=== PATIENT | female | born 1970 | race Asian ===

== ENCOUNTER 2017-01-23 06:51 | Inpatient (IN) | payer OTHER ==
[~2017-01-23] VITALS: Ht 157.5 cm; Wt 68.0 kg
[2017-01-23] VITALS (18 sets, daily range): BP systolic 98–156; BP diastolic 66–98
[~2017-01-23 06:51] MED LIST: NKM
[2017-01-23] MEDS ORDERED: Thrombin 5000 units TOPIC ONE (07:01)
[2017-01-23] MEDS ORDERED: Bupivacaine w/Epi 0.5% 30ml Vial INJ ONE (07:02)
[2017-01-23] MEDS ORDERED: Gelfoam Absorbable 1gm powder pkt TOPIC ONE (07:02)
[2017-01-23] MEDS ORDERED: Thrombin 5000 units spray kit TOPIC ONE (07:02)
[2017-01-23] MEDS ORDERED: Bacitracin 50000 Units Vial ONE (07:02)
[2017-01-23] MEDS ORDERED: Vancomycin 1gm inj IVPB ONE (07:03)
[2017-01-23] MEDS ORDERED: Propofol 10mg/ml 20ml IV ONE (08:00)
[2017-01-23] MEDS ORDERED: Lidocaine 1% MPF 10mg/ml 5ml ONE (08:00)
[2017-01-23] MEDS ORDERED: Zemuron 50mg/5ml Inj IV ONE (08:00)
[2017-01-23] MEDS ORDERED: Glycopyrrolate 0.2mg/ml 1ml Vial ONE (08:00)
[2017-01-23] MEDS ORDERED: Lidocaine 1% Plain 30 ml INJ ONE (08:00)
[2017-01-23] MEDS ORDERED: Neostigmine 1mg/ml 10ml Inj ONE (08:00)
[2017-01-23] MEDS ORDERED: Midazolam 2mg/2ml Inj ONE (08:00)
[2017-01-23] MEDS ORDERED: fentaNYL 250mcg/5ml ONE (08:00)
[2017-01-23] MEDS ORDERED: Dexamethasone 4mg/ml vial ONE (08:00)
[2017-01-23] MEDS ORDERED: LR 1000ml 1,000 ML IVLG SCH (08:16)
--- NOTE | 2017-01-23 08:16 | Anethesia Preoperative Eval ---
Anesthesia Pre-op PMH/ROS General Date of Evaluation: Jan 23, 2017 Time of Evaluation: 08:31 Anesthesiologist: Pedro ASA Score: ASA 2 Mallampati Score Class I : Soft palate, uvula, fauces, pillars visible Class II: Soft palate, uvula, fauces visible Class III: Soft palate, base of uvula visible Class IV: Only hard plate visible Mallampati Classification: Class II Surgeon: Skyler Diagnosis: Back Pain Surgical Procedure: PSF L4-5 Anesthesia History: none Family History: no anesthesia problems Allergies: Coded Allergies: No Known Allergies (Unverified , 01/21/17) Medications: see eMAR Past Medical History Cardiovascular: Reports: HTN Neurologic/Psychiatric: Reports: depression/anxiety Musculoskeletal/Integumentary: Reports: other - Back Pain PSxH Narrative: Lumbar Spine SX 2015 Anesthesia Pre-op Phys. Exam Physician Exam Last Vital Signs Date Time Temp Pulse Resp B/P Pulse Ox O2 Delivery O2 Flow Rate FiO2 01/23/17 07:41 97.9 74 16 156/98 98 Room Air Constitutional: NAD Neurologic: CN 2-12 intact Cardiovascular: RRR Respiratory: CTA Gastrointestinal: S/NT/ND Airway Exam Mallampati Score: Class II MO: full ROM: full Teeth: intact Anesthesia Pre-op A/P Labs Urine Test Test 01/23/17 07:10 Urine HCG, Qualitative Negative Risk Assessment & Plan Assessment: ASA 2 Plan: GA, BIS, Glidescope Status Change Before Surgery: No Pre-Antibiotics Dru Grams Ancef IV Given Within 1 Hr of Incision: Yes Time Given: 08:44 Everardo Vasquez MD Jan 23, 2017 08:16
--- NOTE | 2017-01-23 08:21 | Immediate Post-Op Evaluation ---
Immediate Post-Op Evalulation Immediate Post-Op Evalulation Procedure: PSF L4-5 Date of Evaluation: Jan 23, 2017 Time of Evaluation: 12:10 IV Fluids: 1500 LR Blood Products: 0 Estimated Blood Loss: 40 Urinary Output: 200 Blood Pressure Systolic: 118 Blood Pressure Diastolic: 73 Pulse Rate: 87 Respiratory Rate: 16 O2 Sat by Pulse Oximetry: 100 Temperature (Fahrenheit): 97.1 Pain Score (1-10): 2 Complications Stable Patient Status: awake, reacts, patent, extubated, none Hydration Status: adequate Dru Grams Ancef IV Given Within 1 Hr of Incision: Yes Time Given: 08:44 Everardo Vasquez MD Jan 23, 2017 08:21
[2017-01-23] MEDS ORDERED: fentaNYL 100 mcg/2 mL IV PRN (08:30)
[2017-01-23] MEDS ORDERED: Metoclopramide 10mg/2ml Inj IVP PRN ×2 (08:30→11:30)
[2017-01-23] MEDS ORDERED: Norco 7.5mg/325mg tab ORAL PRN ×3 (08:30→14:00)
[2017-01-23] MEDS ORDERED: Norco 5mg/325mg tab ORAL PRN ×2 (08:30→14:00)
[2017-01-23] MEDS ORDERED: Labetalol 5mg/ml 20ml vial IV PRN (08:30)
[2017-01-23] MEDS ORDERED: LORazepam Inj 2mg/ml 1ml IV PRN (08:30)
[2017-01-23] MEDS ORDERED: Meperidine 25mg/ml Inj IV PRN (08:30)
[2017-01-23] MEDS ORDERED: Atropine Inj 1mg/10ml Syr IV PRN (08:30)
[2017-01-23] MEDS ORDERED: Oxycodone/Acetaminophen 5-325 ORAL PRN (08:30)
[2017-01-23] MEDS ORDERED: Ketorolac 30mg Inj IV PRN (08:30)
[2017-01-23] MEDS ORDERED: Midazolam 2mg/2ml Inj IVP PRN (08:30)
[2017-01-23] MEDS ORDERED: DiphenhydrAMINE 50mg/ml Inj IVP PRN (08:30)
[2017-01-23] MEDS ORDERED: Acetaminophen (Non formulary) 100 ML IV ONE (08:30)
[2017-01-23] MEDS ORDERED: Hydromorphone 0.5mg/0.5ml inj IVP PRN (08:30)
[2017-01-23] MEDS ORDERED: Ketorolac 60mg Inj IV PRN (08:30)
--- NOTE | 2017-01-23 09:11 | Pre-Procedure Note/Attestation ---
Pre-Procedure Note/Attestation Complete Prior to Procedure Procedure Narrative: PSF L45, L decompression Indications for Procedure Pre-Operative Diagnosis: Sp L45 Fusion with pseudoarthrosis, L Stenosis Attestation I attest that I discussed the nature of the procedure; its benefits; risks and complications; and alternatives (and the risks and benefits of such alternatives ), prior to the procedure, with the patient (or the patient's legal leather goods sales representative). I attest that, if there was a reasonable possibility of needing a blood transfusion, the patient (or the patient's legal leather goods sales representative) was given the [facility] standardized written summary, pursuant to the Chuckie Robles Blood Safety Act ([place] Health and Safety Code # 1645, as amended). I attest that I re-evaluated the patient just prior to the surgery and that there has been no change in the patient's H&P, except as documented below: IVONE ELAINE Jan 23, 2017 09:11
--- NOTE | 2017-01-23 09:12 | Brief Operative Note ---
Immediate Post Operative Note Operative Note Pre-op Diagnosis: Sp L45 Fusion with pseudoarthrosis, L Stenosis Procedure: L45 psf, L decompression Post-op Diagnosis: same as pre-op Findings: consistent w/pre-op dx studies Surgeon: chariyt Supervisor [employer]ation: beatriz [place] [employer] Anesthesiologist: arian mix Anesthesia: general Specimen: none Complications: none Condition: stable Estimated Blood Loss: minimal Drains: none Implant(s) used?: Yes - alphateck screws IVONE ELAINE Jan 23, 2017 09:12
[2017-01-23] MEDS ORDERED: traMADol 50mg tab ORAL PRN (11:30)
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
[2017-01-23] MEDS ORDERED: Acetaminophen 650 MG SUPP RECTAL PRN (14:00)
[2017-01-23] MEDS ORDERED: Milk of Magnesia 30ml Ud ORAL PRN (14:00)
[2017-01-23] MEDS ORDERED: HYDROmorphone 1mg/ml Carpuject SUBQ PRN (14:00)
[2017-01-23] MEDS ORDERED: Naloxone 0.4mg/ml Inj IVP PRN (14:00)
[2017-01-23] MEDS ORDERED: D5 1/2NS 1,000 ML IV SCH (14:00)
[2017-01-23] MEDS: HYDROmorphone 1mg/ml Carpuject IVP PRN ×2 (15:52→20:48)
[2017-01-23] MEDS: ceFAZolin sod 1 GM in D5W 55 ML IV SCH ×2 (16:24→23:25)
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
[2017-01-23] MEDS: Pericolace tab ORAL SCH (18:00)
[2017-01-23] MEDS: Docusate 100mg tablet ORAL SCH (18:00)
[2017-01-23] MEDS: D5 1/2NS 1,000 ML IV SCH (23:25)
[2017-01-23] MEDS: HYDROmorphone 1mg/ml Carpuject SUBQ PRN (23:27)
[2017-01-24] VITALS: BP 127/67
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
[2017-01-24] MEDS: HYDROmorphone 1mg/ml Carpuject SUBQ PRN ×2 (03:47→09:32)
[2017-01-24 04:00] VITALS: BP 116/62
[2017-01-24] MEDS: D5 1/2NS 1,000 ML IV SCH (06:55)
[2017-01-24 07:30] LABS: BASOPHILS % (AUTO) 0.2 % (0.0-2.0); LYMPHOCYTES % (AUTO) 12.4 % (20.0-45.0); MEAN CORPUSCULAR HEMOGLOBIN 28.2 PG (27.0-31.0); MEAN CORPUSCULAR VOLUME 88 FL (80-99); MEAN PLATELET VOLUME 9.2 FL (6.5-10.1); MONOCYTES % (AUTO) 6.3 % (1.0-10.0); NEUTROPHILS % (AUTO) 81.1 % (45.0-75.0); PLATELET COUNT 217 K/UL (150-450); RED BLOOD COUNT 3.93 M/UL (4.20-5.40); RED CELL DISTRIBUTION WIDTH 13.6 % (11.6-14.8); WHITE BLOOD COUNT 12.8 K/UL (4.8-10.8)
[2017-01-24 08:00] VITALS: BP 111/54
[2017-01-24] MEDS: ceFAZolin sod 1 GM in D5W 55 ML IV SCH (08:17)
[2017-01-24] MEDS: Pericolace tab ORAL SCH ×2 (08:20→17:44)
[2017-01-24] MEDS: Docusate 100mg tablet ORAL SCH ×2 (08:20→17:44)
--- NOTE | 2017-01-24 08:23 | Orthopedic Spine Progress Note ---
Ortho Spine - Progress Note Subjective Symptoms: c/o post-op back pain, improved - as compared to pre-op Objective Vital Signs: Last 24 Hour Vital Signs Date Time Temp Pulse Resp B/P Pulse Ox O2 Delivery O2 Flow Rate FiO2 01/24/17 04:00 98.1 103 18 116/62 94 Room Air 01/24/17 00:00 97.9 102 18 127/67 94 Room Air 01/23/17 20:00 98.1 101 16 134/76 94 Room Air 01/23/17 19:13 97.7 01/23/17 16:23 97.7 01/23/17 16:00 97.7 101 19 110/76 96 Nasal Cannula 2.0 01/23/17 15:45 97.2 101 18 106/74 96 Nasal Cannula 2.0 01/23/17 15:15 97.5 101 18 119/74 97 Nasal Cannula 2.0 01/23/17 14:45 97.5 88 17 104/66 99 Nasal Cannula 2.0 01/23/17 14:30 97.2 78 16 109/76 97 Nasal Cannula 2.0 01/23/17 14:15 97.0 96 17 117/77 96 Nasal Cannula 2.0 01/23/17 14:00 97.0 100 18 108/67 97 Nasal Cannula 2.0 01/23/17 13:45 96.8 97 17 124/77 97 Nasal Cannula 2.0 01/23/17 13:16 97.5 01/23/17 12:50 88 17 98/67 100 Nasal Cannula 3.0 01/23/17 12:45 97.2 71 15 119/70 100 Nasal Cannula 3.0 01/23/17 12:35 77 17 122/72 100 Nasal Cannula 3.0 01/23/17 12:30 72 18 118/67 100 Nasal Cannula 3.0 01/23/17 12:20 85 15 135/81 100 Simple Mask 6.0 01/23/17 12:10 85 18 135/81 100 Simple Mask 6.0 01/23/17 12:05 86 14 128/86 100 Simple Mask 6.0 01/23/17 12:01 87 16 100 01/23/17 11:59 97.1 88 17 118/73 100 Simple Mask 6.0 I&O: Intake and Output 01/23/17 01/24/17 19:00 07:00 Intake Total 575 ml 1610 ml Output Total 600 ml 1500 ml Balance -25 ml 110 ml Intake Oral 50 ml 360 ml IV Total 525 ml 1250 ml Output Urine Total 600 ml 1500 ml # Voids 1 Wound: clean, intact Drains: none Neuro Status: normal Assessment Procedure Performed: L45 psf, L decompression Plan Plan: PT, pain management, d/c antibiotics, discharge plan IVONE ELAINE Jan 24, 2017 08:23
[2017-01-24] MEDS ORDERED: HYDROmorphone 1mg/ml Carpuject SUBQ PRN (11:00)
[2017-01-24] MEDS ORDERED: D5 1/2NS 1,000 ML IV SCH (11:00)
[2017-01-24 12:00] VITALS: BP 113/73
[2017-01-24] MEDS: oxyCODONE 5mg IR tab ORAL PRN ×2 (13:13→22:52)
[2017-01-24 16:00] VITALS: BP 122/69
--- NOTE | 2017-01-24 16:38 | Progress Note ---
DATE: 01/24/2017 ACUTE PAIN MANAGEMENT PHYSICIAN PROGRESS NOTE MEDICATIONS: Medication administration record reviewed. Medications include Colace, Dia-Colace, Protonix intravenous fluids. As needed medications include Tylenol, milk of magnesia, Benadryl, Cepacol, Catapres, Zofran, oxycodone, Mylanta, Phenergan, Soma, and Dilaudid. Laboratory studies from this morning 01/24/2017 white count 13, hematocrit 35, platelets 217,000. Vital signs, pain level is 7/10 on the visual analog pain scale, oxygen saturation 93% on room air, afebrile, pulse 103, respirations 18, blood pressure 111/54. I spent over 60 minutes in consultation today. I discussed the case in detail with the surgeon, Dr. Holland. I saw the patient at bedside with Hungarian speaking profiler along with the nurse, RN and the patient's . I also spoke with the physical therapist who did ambulate the patient with a front wheel walker. The Menchaca catheter will be removed to reduce the risk for infections. The patient's nausea complaints have been improving. She tolerated clear liquid diet and will advance her diet as tolerated. The patient has been responding well to the breakthrough Dilaudid injection. She used Soma this morning. I will trial her on oxycodone with a full stomach of lunch today to test for tolerability. I will then wean off Dilaudid injections at dinnertime tonight with extrication for discharging home tomorrow, per the surgeon's orders. The patient does have an incentive spirometer at the bedside and encouraged aggressive usage for good pulmonary toilet. The patient's will drop-off prescription at the local pharmacy for Soma and Percocet pills. research attorney who was helping with their claims. I will also dose the patient with milk of magnesia at dinnertime tonight to help with bowel regularity. Overall the patient is progressing as expected after her lumbar spine fusion surgery. Jose Woods M.D. DR: Jessi JOB#: [id number] CC:
[2017-01-24] MEDS ORDERED: Milk of Magnesia 30ml Ud ORAL ONE (18:00)
[2017-01-24 20:00] VITALS: BP 140/88
[2017-01-25] VITALS: BP 125/75
[2017-01-25 04:00] VITALS: BP 115/58
--- NOTE | 2017-01-25 07:31 | 48 Hour Post Anesthesia Eval ---
Post Anesthesia Evaluation Procedure: PSF L4-5 Date of Evaluation: Jan 25, 2017 Time of Evaluation: 06:31 Blood Pressure Systolic: 115 0: 58 Pulse Rate: 100 Respiratory Rate: 18 Temperature (Fahrenheit): 99.5 O2 Sat by Pulse Oximetry: 96 Airway: patent Nausea: No Vomiting: No Pain Intensity: 3 Hydration Status: adequate Cardiopulmonary Status: Stable Mental Status/LOC: patient returned to baseline Follow-up Care/Observations: 0 Post-Anesthesia Complications: 0 Follow-up care needed: N/A Everardo Vasquez MD Jan 25, 2017 07:30
[2017-01-25] MEDS: oxyCODONE 5mg IR tab ORAL PRN (07:41)
[2017-01-25] MEDS: Pericolace tab ORAL SCH (07:41)
[2017-01-25] MEDS: Docusate 100mg tablet ORAL SCH (07:41)
[2017-01-25 08:43] VITALS: BP 106/54
[2017-01-25] MEDS ORDERED: Magnesium Citrate Liq Btl ORAL ONE (11:30)
[2017-01-25 12:00] VITALS: BP 121/69
[2017-01-25] MEDS ORDERED: SOMA350 MG PO (14:20)
[2017-01-25] MEDS ORDERED: PERCOCET 10-321 EACH ORAL (14:20)
--- NOTE | 2017-01-25 20:08 | Progress Note ---
DATE: 01/25/2017 ACUTE PAIN MANAGEMENT PHYSICIAN PROGRESS NOTE MEDICATIONS: Medication administration record reviewed. Medications include Dia-Colace, Phenergan suppository, Protonix, oxycodone, Zofran, Narcan, milk of magnesia, Colace, Benadryl, Catapres, Cepacol, Soma, Mylanta, and Tylenol. Laboratory studies from yesterday, 01/24/2017, shows white count of 13, hematocrit 35, and platelets 217,000. Vital signs, afebrile, pulse 96, respirations 19, blood pressure 106/54, and oxygen saturation 96% on room air. I spent over 60 minutes in consultation today. I saw the patient at bedside with a Italian etl analyst developer along with the nurse RN, Mira. Also, I spoke with the overnight nurse RN, Axel, who also was interpreted Italian with the patient. The patient's is at the bedside. He already filled the prescription for pain medications, which I have provided yesterday. The patient has been tolerating her pain off of parental narcotics for over 15 hours. She has been using oral oxycodone pills with good effect and no adverse side effects. The patient is passing positive flatus. She received milk of magnesia yesterday after dinner and received another dose this morning. I have asked the nurse to dispense a bottle of magnesium citrate 300 mL for the patient to use it here in the hospital or to take home with her. with the surgeon, Dr. Holland wants to discharge the patient home later this morning. The patient feels comfortable with the discharge trial home. She is ambulating well with physical therapy. The incision is clean and dry. The patient complains of itching by the incision area. I have instructed the patient not to place any topical creams or otherwise over the wound, to avoid postoperative infection. The patient and understood with the Italian etl analyst developer and agreed to comply. This obese patient has been fairly compliant using her incentive spirometer. I encouraged her to use an incentive spirometer at home and to continue aggressive usage for the next 72 hours. The patient is tolerating advancing diet and appeared in good spirits. I agree with the discharge trial per the surgeon. Jose Woods M.D. DR: ANN-MARIE JOB#: [id number] CC:
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
== END 2017-01-25 14:43 | disposition home or self-care (01) | DRG 460 ==
LOC: SDSOVERFLO 06:51 → 3E 13:43
PROC: 01NB0ZZ Release Lumbar Nerve, Open Approach (ICD-10-PCS; principal; 2017-01-23 08:30)
PROC: 0SB20ZZ Excision of Lumbar Vertebral Disc, Open Approach (ICD-10-PCS; principal; 2017-01-23 08:30)
PROC: 0SG00Z1 (ICD-10-PCS; principal; 2017-01-23 08:30)
DX: M96.0 Pseudarthrosis after fusion or arthrodesis (principal); E66.9 Obesity, unspecified; M48.06 Spinal stenosis, lumbar region; Y83.8 Other surgical procedures as the cause of abnormal reaction of the patient, or of later complication, without mention of misadventure at the time of the procedure; M65.88 Other synovitis and tenosynovitis, other site; R03.0 Elevated blood-pressure reading, without diagnosis of hypertension
CPT/HCPCS: 36415; 72020; 76001; 81025; 85025; 86850; 86900; 86901; 87081; 94003; 94150; C9399; J2180; J2250; J2405; J2710; J2765